=== PATIENT | female | born 1985 | race Caucasian/White ===

== ENCOUNTER 2025-03-12 15:56 | Emergency (ER) | payer MEDICAID, SELFPAY ==
[2025-03-12 16:13] VITALS: BP 110/77; PULSE 71; RESP 18; TEMP 36.5; O2SAT 96; BMI 32.5
[2025-03-12] MEDS: HYDROcodone/APAP 5/325 TABLET 1 TAB PO (16:38)
[2025-03-12] MEDS: KETOROLAC INJ 60 MG/2 ML VIAL IM (16:39)
--- NOTE | 2025-03-12 17:29 | PD.EDBACK ---
ED Back Injury Pain RME/HPI General Chief Complaint: Back Pain/Injury Stated Complaint: BACK PAIN (01/18) Time Seen by Provider: 03/12/25 16:12 Arrival date/time: 03/12/25 15:56 This is a case of 39-year-old female with history of chronic low back pain with sciatica came in in the emergency room due to on and off lower back pain for 3 days radiating to the right hip going to lateral side of the right thigh denies any injury or trauma denies any numbness weakness or tingling sensation or incontinence to urine or stool patient states that she had physical therapy in the past and x-ray and it was normal diagnosed with sciatica Limitations: no limitations Related Data Previous Rx's ?Medication ?Instructions ?Recorded hydrocodone 5 mg-acetaminophen 325 1 tab PO Q6H #20 tabs 08/04/18 mg tablet ([place]) ibuprofen 800 mg tablet (IBU) 800 mg PO TID PRN fever #30 tabs 10/18/22 ondansetron 4 mg disintegrating 4 mg PO Q8H PRN nausea and 10/18/22 tablet vomiting #20 tabs baclofen 10 mg tablet 10 mg PO BID PRN muscle spasm #10 03/12/25 tabs hydrocodone 5 mg-acetaminophen 325 1 tab PO Q6H PRN pain #12 tabs 03/12/25 mg tablet prednisone 20 mg tablet See Taper PO QDAY 5 days #5 tabs 03/12/25 Allergies Allergy/AdvReac Type Severity Reaction Status Date / Time No Known Allergies Allergy Unknown Verified 03/12/25 15:58 Review of Systems Review of Systems Systems Reviewed: All systems reviewed, normal except as documented Constitutional Constitutional: Reports system reviewed and no additional complaints, except as documented and Reports as per HPI ENT Ears, Nose, Mouth, and Throat: Denies neck pain Cardiovascular Cardiovascular: Reports system reviewed and no additional complaints, except as documented and Reports as per HPI Respiratory Respiratory: Reports system reviewed and no additional complaints, except as documented and Reports as per HPI Gastrointestinal Gastrointestinal: Reports system reviewed and no additional complaints, except as documented and Reports as per HPI Musculoskeletal Musculoskeletal: Reports system reviewed and no additional complaints, except as documented, Reports as per HPI, Denies abnormal gait, Denies arthralgias, Denies atrophy, Reports back pain, Denies deformity, Denies joint swelling, Denies limited range of motion, Denies loss of height, Denies muscle cramps, Denies muscle weakness, Denies myalgias, Denies neck pain, Denies numbness, Denies radiating pain into limb, Denies stiffness and Denies tingling Neurologic Neurologic: Reports system reviewed and no additional complaints, except as documented, Reports as per HPI, Denies abnormal gait, Denies numbness and Denies tingling Past Medical History Social History SMOKING STATUS: Current every day smoker ED Exam General Limitations: Present no limitations General appearance: Present alert, in no apparent distress and other (awake alert oriented not in distress no toxic looking well hydrated well nourished) Head Head exam: Present atraumatic, normocephalic and normal inspection Eye Eye exam: Present normal appearance, PERRL and EOMI ENT ENT exam: Present normal exam, normal oropharynx and mucous membranes moist Neck Neck exam: Present normal inspection, full ROM and trachea midline; Absent tenderness, meningismus, lymphadenopathy or thyromegaly Chest Chest inspection: Present normal inspection and symmetric chest wall rise; Absent tenderness, rash or abscess Respiratory Respiratory exam: Present normal lung sounds bilaterally; Absent respiratory distress, wheezes, stridor, accessory muscle use or prolonged expiratory phase Cardiovascular Cardiovascular exam: Present regular rate, normal rhythm and normal heart sounds; Absent bradycardia, tachycardia, irregular rhythm, systolic murmur, diastolic murmur or clicks Abdominal Exam Abdominal exam: Present soft and normal bowel sounds; Absent distention, tenderness, guarding, rebound, rigidity, diminished bowel sounds, hyperactive bowel sounds, hypoactive bowel sounds or organomegaly Extremities Exam Extremities exam: Present normal inspection and full ROM Expanded Lower Extremity Exam Hip/Pelvis exam: Present normal inspection, full ROM and pelvis stable; Absent tenderness, swelling, abrasion, laceration, ecchymosis, deformity, crepitus, dislocation, erythema, external rotation, internal rotation or shortening Upper leg exam: Present normal inspection and full ROM; Absent tenderness, swelling, abrasion, laceration, ecchymosis, deformity, crepitus, dislocation or erythema Back Exam Back exam: Present normal inspection, full ROM, tenderness (mild tenderness right lumbar) and muscle spasm; Absent CVA tenderness (R), CVA tenderness (L), paraspinal tenderness, vertebral tenderness, rashes, sciatic notch tenderness (R), sciatic notch tenderness (L), straight leg raise (R) or straight leg raise (L) Neurological Exam Neurological exam: Present alert, oriented X3, CN II-XII intact and normal gait; Absent motor sensory deficit or reflexes normal Psychiatric Psychiatric exam: Present normal affect and normal mood Skin Skin exam: Present warm, dry, intact and normal color Course Quality Measures none Orders Category Date Time Status HYDROcodone*/APAP 5/325 [[place] 5/325] Med 03/12/25 16:16 Discontinued 1 tab PO X1 ONE Ketorolac Inj [Toradol Inj] Med 03/12/25 16:16 Discontinued 60 mg IM X1 ONE Vital Signs Vital signs: Vital Signs Temperature 97.7 F 03/12/25 16:13 Pulse Rate 71 03/12/25 16:13 Respiratory Rate 18 03/12/25 16:13 Blood Pressure 110/77 03/12/25 16:13 Pulse Oximetry (%) 96 03/12/25 16:13 Oxygen Delivery Method Room Air 03/12/25 16:13 oxygen saturation room air 96% normal Back Pain / Injury MDM Narrative MDM Narrative:: This is a case of 39-year-old female with history of chronic low back pain with sciatica came in in the emergency room due to on and off lower back pain for 3 days radiating to the right hip going to lateral side of the right thigh denies any injury or trauma denies any numbness weakness or tingling sensation or incontinence to urine or stool patient states that she had physical therapy in the past and x-ray and it was normal diagnosed with sciatica physical examination patient is awake alert oriented not in distress nontoxic looking well-hydrated well-nourished neck exam is normal abdominal exam is benign nonsurgical no guarding no rebound no rigidity no CVA tenderness patient noted to have mild to moderate tenderness on the right lower back L1-L5 but no paraspinal no paravertebral tenderness negative straight leg exam no CVA tenderness no crepitation no deformity no swelling no cellulitis hip and right lower extremities normal ROM intact neurovascular and intact patient verbalized do not want any imaging or tests she verbalized only medication here and prescription patient was given Toradol [place] here in the emergency room which improved and resolve the pain patient was prescribed a 5-days prednisone [place] and baclofen patient will follow-up with PCP to be referred to neurosurgeon for chronic low back pain and sciatica and possible MRI to rule out herniated disc and pain management doctor for pain control worsening symptoms or any emergent concern call 911 or go to the nearest emergency room no signs and symptoms of cauda equina Patient was discharged with comfortable condition walking with stable gait. Patient verbalized no further complains explained diagnosis and answered patient question. Patient is comfortable with the proposed management plan including the need to follow up with his/her primary care physician and any specialist if applicable Discussed patient for any urgent condition or worsening sx, He/She needed to go to emergency room immediately or call 911. Patient acknowledge the responsibility to follow up as instructed and to monitor her/his symptoms. For any persistence of the symptoms for more than 3-5 days return precaution advised. Discussed the result of the test and was given printed discharge instruction Patient data External records reviewed:: [facility] previous records Clinical information provided by:: patient Social determinants that could affect healthcare access:: none Patient has the following chronic illnesses:: none How is presenting disease/condition affected by chronic disease/condition?: no chronic disease Evaluation data The following diagnostics were reviewed and interpreted by me:: other (specify) (none) Lab and/or radiology exams considered but not ordered:: none Interpretation Summary: none Medications / Prescriptions Medications or Prescriptions considered but not ordered:: given Medication administrations:: Medication Administration History Discontinued Medications Hydrocodone Bitart/Acetaminophen (Hydrocodone/Apap 5/325 Tablet) 1 tab PO X1 ONE Stop: 03/12/25 16:17 Last Admin: 03/12/25 16:38 Dose: 1 tab Documented By: Ketorolac Tromethamine (Ketorolac Inj 60 Mg/2 Ml Vial) 60 mg IM X1 ONE Stop: 03/12/25 16:17 Last Admin: 03/12/25 16:39 Dose: 60 mg Documented By: given Consultations Consultation(s) initiated? (list below): No Diagnosis Differential diagnosis back pain/injury: sciatica and other (muscle spasm) Most likely diagnosis given after review of the tests above:: back muscle spasm sciatica Admission Indicated Admission indicated?: not indicated Explain why admission is indicated or not indicated:: not indicated Admission Request Was there a request for admission?: No Admission Attestation Admission request attestation: not indicated Disposition Plan Disposition Plan: Discharge Discharge Attestation Discharge Attestation: The patient and all family members were given an opportunity to ask questions and understood the discharge instructions. Discharge instructions specifically effects, indications for sooner follow up or return to the emergency department, and the expected course of current diagnosis. Patient condition: Stable Discharge Plan Plan Patient Disposition: HOME (Self Care) Patient condition on transfer: Stable Prescriptions/Referrals Prescriptions/Med Rec: New hydrocodone-acetaminophen 5-325 mg tablet 1 tab PO Q6H MDD max 4 tabs per day PRN (Reason: pain) Qty: 12 0RF prednisone 20 mg tablet See Taper PO QDAY 5 Days Qty: 5 0RF Taper: Prednisone Taper 20 mg DAILY for 2 Days and 0 Hour 10 mg DAILY for 2 Days and 0 Hour 5 mg DAILY for 7 Days and 0 Hour baclofen 10 mg tablet 10 mg PO BID PRN (Reason: muscle spasm) Qty: 10 0RF No Action hydrocodone-acetaminophen [[place]] 5-325 mg tablet 1 tab PO Q6H MDD 3 Qty: 20 0RF ibuprofen [IBU] 800 mg tablet 800 mg PO TID PRN (Reason: fever) Qty: 30 0RF ondansetron 4 mg tablet,disintegrating 4 mg PO Q8H PRN (Reason: nausea and vomiting) Qty: 20 0RF Problem List Clinical Impression: Chronic low back pain, Sciatica Patient/Caregiver Discharge Instructions Education Materials: ED Back Pain (Acute or Chronic), ED Chronic Pain, ED Sciatica Additional Instructions: Follow-up with your primary care physician in 2 days for reevaluation and to be referred to neurosurgeon for further evaluation and treatment of chronic low back pain and sciatica for possible MRI to rule out herniated disc he also need to see a pain management doctor for pain control recurrence persistent worsening symptoms or any emergent concern call 911 or go to the nearest emergency room take your medication as directed ice pack and warm compress as needed for pain Print Language: [place] Stand Alone Forms: Stephy Award Info., Patient Portal Info Letter PA/PRODUCTION GRIP Supervising Physician PA/GABY Supervising Physician: Dr [email or web address]
== END 2025-03-12 17:15 | disposition home or self-care (01) ==
LOC: SERX 16:36
PROVIDERS: Emergency Provider Emergency Medicine; PCP Family Medicine
DX: M54.41 Lumbago with sciatica, right side (principal); G89.29 Other chronic pain
CPT/HCPCS: 96372; 99282; J1885; A9270